=== PATIENT | female | born 1930 | race Two or more races ===

== ENCOUNTER 2018-05-03 09:41 | Emergency (ER) | payer OTHER ==
[~2018-05-03] VITALS: Ht 162.6 cm; Wt 84.4 kg
[~2018-05-03 09:41] MED LIST: AUGMENTIN1 TAB.SR . PO; CALCIUM300 MG PO; FORTAMET1000 MG; GLIPIZIDE10 MG; GLIPIZIDE5 MG; GLUCOVANCE 1.251 TAB PO; SYNTHROID125 MCG PO; TENORMIN25 MG PO; VYTORIN 10/40 T1 TAB PO
[2018-05-03] MEDS ORDERED: SYNTHROID137 MCG PO (10:08)
== END 2018-05-03 12:55 | disposition home or self-care (01) ==
LOC: ER 09:41
DX: J09.X2 Influenza due to identified novel influenza A virus with other respiratory manifestations (principal); J40 Bronchitis, not specified as acute or chronic

== ENCOUNTER 2018-06-28 08:05 | Outpatient (CLI) | payer OTHER ==
[~2018-06-28 08:05] MED LIST changes: +SYNTHROID137 MCG PO
== END 2018-06-28 08:08 | disposition home or self-care (01) ==
LOC: RAD 08:05
DX: Z01.811 Encounter for preprocedural respiratory examination (principal)

== ENCOUNTER 2019-04-03 15:02 | Outpatient (CLI) | payer OTHER | END 2019-04-03 15:16 | disposition home or self-care (01) | LOC: NUCLEAR 15:02 | DX: M81.0 Age-related osteoporosis without current pathological fracture (principal) ==

== ENCOUNTER 2019-11-14 07:11 | Outpatient (CLI) | payer OTHER | END 2019-11-14 07:19 | disposition home or self-care (01) | LOC: SONOGRAMA 07:11 → MAMO-SONO 07:15 → SONOGRAMA 07:19 | PROVIDERS: ATTEND Family Medicine Adult Medicine | DX: R31.29 Other microscopic hematuria (principal) ==

== ENCOUNTER 2021-05-23 08:36 | Emergency (ER) | payer OTHER ==
[~2021-05-23] VITALS: Ht 152.4 cm; Wt 78.5 kg
[2021-05-23] MEDS ORDERED: METOPROLOL SUCC50 MG PO (08:53)
[2021-05-23] MEDS ORDERED: JANUVIA100 MG PO (08:58)
[2021-05-23] MEDS ORDERED: JARDIANCE10 MG PO (08:58)
[2021-05-23] MEDS ORDERED: EVISTA60 MG PO (08:59)
[2021-05-23] MEDS ORDERED: DICLOFENAC SODI50 MG PO (10:04)
== END 2021-05-23 11:00 | disposition home or self-care (01) ==
LOC: ER 08:36
DX: M25.562 Pain in left knee (principal); E11.9 Type 2 diabetes mellitus without complications; I10 Essential (primary) hypertension; E03.9 Hypothyroidism, unspecified; Z91.041 Radiographic dye allergy status; Z79.84 Long term (current) use of oral hypoglycemic drugs; Z96.653 Presence of artificial knee joint, bilateral

== ENCOUNTER 2021-06-20 11:12 | Emergency (ER) | payer OTHER ==
[~2021-06-20] VITALS: Ht 152.4 cm; Wt 77.1 kg
[~2021-06-20 11:12] MED LIST changes: +DICLOFENAC SODI50 MG PO; +EVISTA60 MG PO; +JANUVIA100 MG PO; +JARDIANCE10 MG PO; +METOPROLOL SUCC50 MG PO
== END 2021-06-20 14:10 | disposition home or self-care (01) ==
LOC: ER 11:12
DX: S59.911A Unspecified injury of right forearm, initial encounter (principal); W18.30XA Fall on same level, unspecified, initial encounter; Y93.9 Activity, unspecified; Y92.59 Other trade areas as the place of occurrence of the external cause; S09.93XA Unspecified injury of face, initial encounter; Z91.041 Radiographic dye allergy status; E11.21 Type 2 diabetes mellitus with diabetic nephropathy; Z79.84 Long term (current) use of oral hypoglycemic drugs; E03.9 Hypothyroidism, unspecified; I10 Essential (primary) hypertension